=== PATIENT | male | born 1990 | race Caucasian/White ===

== ENCOUNTER 2022-06-28 11:32 | Emergency (ER) | payer OTHER ==
[2022-06-28] MEDS ORDERED: LIDOCAINE 1%-EPI 1:100000 20 ML MDV SUBQ STA (11:46)
[2022-06-28] MEDS ORDERED: TETANUS/DIPHTHERIA/PERTUSSIS 0.5 ML SYRINGE IM ONE (11:46)
--- NOTE | 2022-06-28 11:46 | ED Physician Documentation ---
PD HPI UPPER EXT INJURY - Stated complaint Stated Complaint: RT LEG INJURY - Chief complaint Chief Complaint: Laceration - History obtained from History obtained from: Patient - Additonal information Additional information: Healthy 31-year-old gentleman with unknown tetanus status was at work today and accidentally cut his right thigh with a skill saw. It went through his pants. PD PAST MEDICAL HISTORY - Present Medications Home Medications: Ambulatory Orders Medication Instructions Recorded Confirmed Oxycodone HCl/Acetaminophen 1 - 2 each PO Q6H PRN #14 tablet 06/28/22 [Percocet 5-325 mg Tablet] cephALEXin [Keflex] 500 mg PO Q6H #20 cap 06/28/22 - Allergies Allergies/Adverse Reactions: Allergies Allergy/AdvReac Type Severity Reaction Status Date / Time acetaminophen [From Vicodin] Allergy Nausea Verified 06/28/22 11:38 hydrocodone [From Vicodin] Allergy Nausea Verified 06/28/22 11:38 PD ED PE NORMAL - Vitals Vital signs reviewed: Yes - General General: Alert and oriented X 3, No acute distress - Extremities Extremities: Other (There is a 15 cm oblique laceration over the anterior right thigh down into, just barely, quadricep muscle. Quadricep function is normal. He has decreased sensation just distal to the wounds but not distal to the knee.) - Neuro Neuro: Alert and oriented X 3, Normal speech Results - Vitals Vitals: Vital Signs - 24 hr 06/28/22 06/28/22 11:35 13:05 Temperature 36.6 C 36.6 C Heart Rate 74 74 Respiratory 24 16 Rate Blood Pressure 112/68 125/101 H O2 Saturation 99 98 Oxygen O2 Source Room air Procedures - Laceration (location) Right leg Length in cm: 15 Wound type: Into subcut fat, Into muscle Neurovascular status: Motor intact, Vascular intact Anesthesia: Lidocaine 1% with epi Wound preparation: Hibiclens, Irrigated copiously NS, Debrided moderately, Wound explored, To the base Deep layer closure: Vicryl, size #-0 - enter number (3-0), # sutures - enter number (5) Skin layer closure: [place] Other: Patient tolerated well, No complications, Neurovascular intact, Tetanus booster given PD Medical Decision Making - ED course ED course: 31-year-old gentleman with large laceration to the right thigh. He has decreased sensation just distal to the laceration but no nerve injury. The wound just affected the quadricep muscle, but his Function is intact. Wound was closed deeply with Vicryl and skin layer with carmen. Counseled on wound care. Given 1 g IM Ancef and tetanus updated here. L&[id number] completed and submitted Departure - Departure Disposition: Home, Self Care Clinical Impression: Laceration of right thigh Condition: Good Record reviewed to determine appropriate education?: Yes Instructions: ED Laceration Scalp Stitch Or Stap Prescriptions: cephALEXin [Keflex] 500 mg PO Q6H #20 cap Oxycodone HCl/Acetaminophen [Percocet 5-325 mg Tablet] 1 - 2 each PO Q6H PRN #14 tablet PRN Reason: pain Comments: I sent your prescription electronically to the [facility] in [place]. Come back for any signs of infection which would include: Redness, swelling, drainage, increased pain, or fevers. You can wash it soap and water. Keep it covered and moist with bacitracin ointment which is available over the counter; avoid neosporin. Follow-up with your physician in 21 days for suture removal. Keep the knee immobilizer On when you are up and around until the carmen are out. I am prescribing a short course of narcotic pain medication for you. These are potentially dangerous and addictive medications that should be used carefully. These medications may constipate you. Take an [id number] stool softener (docusate) twice daily with plenty of water while taking these medications. If you go 24 hours without a bowel movement, take [id number] miralax, per package instructions. Do not drink or drive while taking these medications. If you received narcotic or sedating medications while in the emergency department, do not drive for 24 hours. Store this medication in a safe, secure place and out of reach of children. It is a violation of federal law to give or sell this medication to another person or to use in a manner other than prescribed. The ED will not refill narcotic prescriptions, including prescriptions lost or stolen. To dispose of unwanted medications: 1. [facility] at [address] in [place] has a medication drop box. They accept prescription medications (in pill form) Monday through Monday 9:00 a.m. to 5:00 p.m. 2. [facility] [employer] accepts prescription medications (in pill form only) for disposal year round. Call for more information. 3. Contact the [facility] for the next [facility] sponsored prescription drug collection event. , [phone], or [phone]; Note that many narcotic pain relievers also contain Tylenol/acetaminophen. Please ensure that your total dose of acetaminophen from all sources does not exceed 3 g (3000 mg) per day. Discharge Date/Time: 06/28/22 13:07
[2022-06-28] MEDS ORDERED: ceFAZolin 1 GM VIAL IM STA (11:51)
[2022-06-28 13:09] VITALS: BP 125/101
== END 2022-06-28 13:07 | disposition home or self-care (01) ==
LOC: ED 11:32
DX: S71.111A Laceration without foreign body, right thigh, initial encounter (principal); W29.8XXA Contact with other powered hand tools and household machinery, initial encounter; Y92.89 Other specified places as the place of occurrence of the external cause; Y99.0 Civilian activity done for income or pay; Z23 Encounter for immunization
CPT/HCPCS: 12035; 90471